=== PATIENT | male | born 1985 | race Two or more races ===

== ENCOUNTER 2023-05-28 14:08 | Emergency (ER) | payer BC ==
[~2023-05-28] VITALS: Ht 177.8 cm; Wt 74.8 kg
[2023-05-28 14:41] VITALS: TEMP 97.6
[2023-05-28 15:02] LABS: BASOPHILS # (AUTO) 0.1 K/uL (0.0-0.2); BASOPHILS % (AUTO) 0.9 % (0.0-2.0); EOSINOPHILS # (AUTO) 0.1 K/uL (0.0-0.7); EOSINOPHILS % (AUTO) 0.8 % (0.0-6.0); HEMATOCRIT 48 % (39-51); HEMOGLOBIN 16.7 g/dL (13.5-17.5); LYMPHOCYTES # (AUTO) 0.7 K/uL (0.8-4.8); MEAN CORPUSCULAR HEMOGLOBIN 31 PG (26.0-33.0); MEAN CORPUSCULAR HGB CONC 35 g/dl (31.0-36.0); MEAN CORPUSCULAR VOLUME 88 fL (80-96); MONOCYTES # (AUTO) 0.7 K/uL (0.1-1.30); MONOCYTES % (AUTO) 7.8 % (2.0-12.0); NEUTROPHILS # (AUTO) 7.1 K/uL (1.8-8.9); NEUTROPHILS % (AUTO) 82.5 % (43.0-81.0); PLATELET COUNT (AUTO) 193 K/uL (150-450); RED BLOOD CELL COUNT(AUTO) 5.47 MIL/uL (4.5-6.0); RED CELL DISTRIBUTION WIDTH 12.8 % (11.5-15.0); WHITE BLOOD COUNT (AUTO) 8.6 K/uL (4.3-11.0)
[2023-05-28] MEDS ORDERED: CT SWABBABLE VALVE TRANS SET 1 EA INFUS.SET MC ONE (15:20)
[2023-05-28] MEDS ORDERED: IV NS 0.9% 250 ML IV ONE (15:20)
[2023-05-28] MEDS ORDERED: IOHEXOL-300 100 ML VIAL IV ONE (15:20)
[2023-05-28] MEDS ORDERED: busPIRone 5 MG TABLET ONE (15:42)
[2023-05-28] MEDS: IV NS 0.9% 1,000 ML BAG IV ONE (15:43)
[2023-05-28] MEDS: busPIRone 5 MG TABLET PO ONE (15:43)
[2023-05-28 16:01] LABS: APPEARANCE,URINE CLEAR (CLEAR); BILIRUBIN,URINE NEGATIVE (NEGATIVE); BLOOD, URINE NEGATIVE Ery/uL (NEGATIVE); COLOR,URINE YELLOW (YELLOW); KETONES,URINE 3+ mg/dL (NEGATIVE); LEUKOCYTE ESTERASE ,URINE NEGATIVE (NEGATIVE); NITRITE, URINE NEGATIVE (NEGATIVE); PROTEIN,URINE NEGATIVE (NEGATIVE); UGLUCOSE NEGATIVE (NEGATIVE); UROBILINOGEN,URINE 0.2 EU/dL (0.2)
[2023-05-28 16:17] LABS: ALBUMIN 4.4 g/dL (3.4-5.0); BILIRUBIN,DIRECT 0.2 mg/dL (0.0-0.2); BILIRUBIN,TOTAL 0.6 mg/dL (0.2-1.0); CREATININE 0.7 mg/dL (0.6-1.3); POTASSIUM 3.4 mmol/L (3.5-5.1)
[2023-05-28 16:40] LABS: ADD URINE CULTURE NO; BACTERIA,URINE N0 /HPF (None Seen); MUCUS,URINE Few /LPF (None Seen); RBC,URINE 0-2 /HPF (0-2); SQUAMOUS EPITHELIAL CELL,UR 0-2 /HPF (None Seen); WBC,URINE 0-2 /HPF (0-3)
[2023-05-28 17:29] VITALS: BP 130/78; O2SAT 99
== END 2023-05-28 17:30 | disposition home or self-care (01) ==
LOC: ER 14:15
DX: R10.31 Right lower quadrant pain (principal)
CPT/HCPCS: 99285; 74177; 96360; 96361; 85025; 80048; 87086; 83690; 80076; 81001; 36415; J7030; J7050; Q9967